=== PATIENT | male | born 1970 | race Caucasian/White ===

== ENCOUNTER 2023-02-23 23:48 | Inpatient (IN) | payer OTHER, SELFPAY ==
--- OUTSIDE RECORDS SUMMARY | 2023-02-23 23:51 | XMS_ITS | Continuity of Care Document ---
Author Name Unknown Organization [facility] Address Unknown Care Team Providers Care Instrumentation Chemist Name Role Phone Arianna FUNG, Heidi Antoine Primary Care Physician [phone] Encounter [facility] Date(s): 12/17/20 - 01/16/21 [facility] Allergies, Adverse Reactions, Alerts No Known Medication Allergies Medications Tylenol 325 mg oral tablet 650 mg, By Mouth, Every 6 hours, PRN, Refills 0, Maintenance, Pain , Mild Pain , Moderate, 02/08/18 15:48:15 EST Start Date: 02/08/18 Status: Ordered Problem List Condition Effective Dates Status Health Status Inform ant Infected sebaceous cyst left upper back(Confirmed) Active Social History Social History Type Response Smoking Status Never smoker entered on: 06/21/16 Sex
--- OUTSIDE RECORDS SUMMARY | 2023-02-23 23:51 | XMS_ITS | Continuity of Care Document ---
Author Name Unknown Organization [facility] Address [address] [place] [address] [address] [place] [address]- Care Team Providers Care Air Carrier Inspector Name Role Phone Heidi Keller MD Primary Care Physician [place] [facility] [id number] Date(s): 02/03/20 - 02/10/[address] [place] [address]- Attending Physician: Rahat Walker MD Referring Physician: Heidi Keller MD Allergies, Adverse Reactions, Alerts No Known Medication Allergies Medications Tylenol 325 mg oral tablet 650 mg, By Mouth, Every 6 hours, PRN, Refills 0, Maintenance, Pain , Mild Pain , Moderate, 02/08/18 15:48:15 EST Start Date: 02/08/18 Status: Ordered Problem List Condition Effective Dates Status Health Status Inform ant Infected sebaceous cyst left upper back(Confirmed) Active Vital Signs Most recent to oldest [Reference Range]: 1 2 3 Height 183 cm (02/03/20 11:14 AM) Pulse Rate [55-90 bpm] 79 bpm (02/03/20 11:14 AM) 75 bpm (01/29/20 3:35 PM) 73 bpm (01/29/20 3:30 PM) Blood Pressure [90-138/55-84 mm Hg] 135/89mm Hg (02/03/20 11:14 AM) 136/109mm Hg (01/29/20 3:35 PM) 162/103mm Hg *H* (01/29/20 3:30 PM) Respiratory Rate [16-30 br/min] 20 br/min (02/03/20 11:14 AM) Temperature [96.8-100.4 DegF] 98.4 DegF (02/03/20 11:14 AM) Blood pressure sites Arm, left (02/03/20 11:14 AM) Arm, right (01/29/20 3:35 PM) Arm, left (01/29/20 3:30 PM) Temperature Route Temporal (02/03/20 11:14 AM) Social History Social History Type Response Smoking Status Never smoker entered on: 06/21/16 Sex
--- OUTSIDE RECORDS SUMMARY | 2023-02-23 23:51 | XMS_ITS | Continuity of Care Document ---
Author Name Unknown Organization [facility] Address [address] [place] [address] [address] [place] [address]- Care Team Providers Care Conversion Worker Name Role Phone Heidi Keller MD Primary Care Physician Encounter [facility] [place] Date(s): 02/12/20 - 02/19/[address] [place] [address]- Attending Physician: Not on Staff, Attending MD Referring Physician: Heidi Keller MD Allergies, [...] Most recent to oldest [Reference Range]: 1 Height 183 cm (02/12/20 11:55 AM) Pulse Rate [55-90 bpm] 80 bpm (02/12/20 11:55 AM) Blood Pressure [90-138/55-84 mm Hg] 153/ 87mm Hg *H* (02/12/20 11:55 AM) Respiratory Rate [16-30 br/min] 20 br/mi n (02/12/20 11:55 AM) Temperature [96.8-100.4 DegF] 96.3 DegF *L* (02/12/20 11:55 AM) Blood pressure sites Arm, left (02/12/20 11:55 AM) Temperature Route Temporal (02/12/20 11:55 AM) Social History Social History Type Response Smoking Status Never smoker entered on: 06/21/16 Sex
--- OUTSIDE RECORDS SUMMARY | 2023-02-23 23:51 | XMS_ITS | Continuity of Care Document ---
Author Name Unknown Organization [facility] Address Unknown Care Team Providers Care Natural Sciences Professor Name Role Phone Heidi Keller MD Primary Care Physician [phone] Encounter [facility] [id number] Date(s): 12/23/20 - 03/03/21 [facility] Attending Physician: Jannet Sood MD Referring Physician: Heidi Keller MD Allergies, [...]
--- OUTSIDE RECORDS SUMMARY | 2023-02-23 23:51 | XMS_ITS | Continuity of Care Document ---
Author Name Unknown Organization [facility] Address [address] [place] [address] [address] [place] [address]- Care Team Providers Care Game Design Instructor Name Role Phone Arianna FUNG, Heidi Antoine Primary Care Physician [phone] [place] [facility] [place] Date(s): 02/12/20 - 03/13/[address] [place] [address]- Attending Physician: Channing Ty Admitting Physician: Channing Ty Referring Physician: Channing Ty Allergies, Adverse Reactions, Alerts No Known Medication [...]
--- OUTSIDE RECORDS SUMMARY | 2023-02-23 23:51 | XMS_ITS | Continuity of Care Document ---
Author Name Unknown Organization [facility] Address [address] [place] [address] [address] [place] [address]- Care Team Providers Care Barrel Painter Name Role Phone Arianna FUNG, Heidi Antoine Primary Care Physician Encounter [facility] [place] Date(s): 01/29/20 - 02/28/[address] [place] [address]- Allergies, Adverse Reactions, Alerts No Known Medication [...]
--- OUTSIDE RECORDS SUMMARY | 2023-02-23 23:51 | XMS_ITS | Continuity of Care Document ---
Author Name Unknown Organization [facility] Address Unknown Care Team Providers Care Lockstitch Collar Setter Name Role Phone Arianna FUNG, Heidi Antoine Primary Care Physician [place] [facility] [place]21 [place] 03/03/21 [facility] Attending Physician: Channing Ty Admitting Physician: Channing Ty Referring Physician: trChanning Allergies, Adverse Reactions, Alerts No Known Medication [...]
--- OUTSIDE RECORDS SUMMARY | 2023-02-23 23:51 | XMS_ITS | Continuity of Care Document ---
Author Name Unknown Organization [facility] Address [address] [place] [address]- Care Team Providers Care Level Vial Inspector Name Role Phone Arianna FUNG, Heidi Antoine Primary Care Physician Encounter [facility] [place] Date(s): 07/15/20 - 07/15/[address] [address]- Discharge Disposition: A-D/C Walkout Attending Physician: Not on Staff, Attending MD Admitting Physician: Not on Staff, Admitting MD Referring Physician: Not on Staff, Referring MD Allergies, Adverse Reactions, Alerts No Known [...] recent to oldest [Reference Range]: 1 2 Oxygen Saturation [94-100 %] 100 % (07/15/20 2:55 PM) 100 % (07/15/20 2:48 PM) Pulse Rate [55-90 bpm] 79 bpm (07/15/20 2:55 PM) 106 bpm *H* (07/15/20 2:48 PM) Blood Pressure [90-138/55-84 mm Hg] 160/ 92mm Hg *H* (07/15/20 2:55 PM) Respiratory Rate [16-30 br/min] 18 br/mi n (07/15/20 2:55 PM) Temperature [96.8-100.4 DegF] 98.8 DegF (07/15/20 2:55 PM) Mode of Delivery (Oxygen) Room air (07/15/20 2:55 PM) Room air (07/15/20 2:48 PM) Blood pressure sites Arm, right (07/15/20 2:55 PM) Temperature Route Oral (07/15/20 2:55 PM) Social History Social History Type Response Smoking Status Never smoker entered on: 06/21/16 Sex
[2023-02-24 01:21] VITALS: BP 142/82; PULSE 63; RESP 16; TEMP 36.6; O2SAT 100
[2023-02-24 01:31] VITALS: BP 142/82; PULSE 63; RESP 16; TEMP 36.6; O2SAT 100
[2023-02-24 01:33] VITALS: BMI 29.3
--- NOTE | 2023-02-24 02:54 | PC.ADMIT ---
PT is a 52 year old male admitted to unit on CV from [facility].PT was brought to [facility] ED secondary to suicide ideation. Per report PT was at home where he was being evicted due to house being condemned when multiple [employer] workers came to take pictures of the home. PT states , I lived at home with my disabled who has mental health issues and our 5 children and now we have been evicted.' Per report PT was expressing SI to the city workers who called the police. When police arrived per report PT laid down on the ground, put his hands behind his head and told police to shoot him. PT currently denies SI/HI/AVH. PT declined flu vaccine, PT would like a spiritual visit, PT is a non smoker, tox screen negative. PT cooperative during admission, avoiding eye contact, pleasant, cooperative, and hopeless. Skin/contraband check completed. PT has no known prior IPLOC. PT COVID negative. Safety tool and treatment plan started, PT placed on 15 minute safety checks. PT resting in bed with eyes closed at this time.
[2023-02-24 08:00] VITALS: BP 138/92; PULSE 75; TEMP 36.4; O2SAT 100
[2023-02-24] MEDS: Acetaminophen 325 MG TABLET 650 MG PO ×2 (09:13→21:09)
[2023-02-24] MEDS: hydrOXYzine HCL 25 MG TABLET PO (09:19)
--- NOTE | 2023-02-24 12:03 | HO.PSYADMNOT ---
HPI Date of Service: 02/24/23 Chief Complaint: Unspecified Depressive Disorder Sources of Information: patient interviewed, chart reviewed and crisis/core team assessment reviewed HPI Subjective Notes: Wallace Warning and Conditional Voluntary Narrative: Patient is a 52-year-old male with history of anxiety who presents to the ED for making suicidal comments. Patient reports that he has indeed been anxious because his family has been facing eviction. In 2014 they were also evicted, kids went to [facility] and the family ended up in a fdc for 5 years; memory of this experience was triggered as [employer] workers started to accumulate at his house and his living situation was temporarily condemned. Reports says he made suicidal comments to the [employer] workers who called 911. Patient said he he did not really make suicidal comments but rather was just referring to how he is going to end up freezing to if he is homeless. When the police arrived he said he did lie down on the ground but his hands on his head said go ahead and shoot me but he reports he just said this out of frustration and that he did not really mean it and that he does not want to . Patient denies any history of suicidality or self-harm. He reports he has ongoing anxiety about psychosocial stressors since his has schizophrenia, his younger child has ASD/ mental retardation and his older daughter has debilitating OCD and because of his 's disability he shoulders all of the family's numerous chores and responsibilities. Patient is applying for disability. Otherwise he has no community support. Denies drug or alcohol abuse. Patient was started on Prozac in October but he only took it for 30 days; would like to retry that now. Past Psychiatric History: No history of psychiatric admissions No history of suicide attempts Medical Evaluation Reviewed: Hospitalist Eval Pending [facility] Medical History (Updated 02/24/23 @ 18:29 by Silas Jara MD) Anxiety Degenerative disc disease, lumbar Degenerative disc disease, cervical Nephrolithiasis Chronic lower back pain Family History: deferred Social History: ; has schizophrenia Together they have 5 children, several with disabilities History of homelessness and living in a family fdc for several years Currently live in a home that is temporarily condemned and needs to be cleaned; apparently they can move back and wants it is clean and then deal with pending eviction Substance History: denies Trauma History: from previous eviction Diagnostics Vital Signs (24Hr): Vital Signs - 24 hr 02/24/23 01:21 02/24/23 01:31 02/24/23 08:00 Temperature 98 F 98 F 97.5 F Pulse Rate 63 63 75 Respiratory Rate 16 16 Blood Pressure 142/82 H 142/82 H 138/92 H Pulse Oximetry 100 100 100 Oxygen Delivery Method Room Air Room Air Room Air BMI result Body Mass Index 29.3 Meds/Allergies Meds Home Medications Medication Instructions Recorded Confirmed Type fluoxetine 10 mg capsule 10 mg PO DAILY 02/24/23 02/24/23 History hydroxyzine HCl 25 mg tablet 25 mg PO BEDTIME PRN anxiety 02/24/23 02/24/23 History Allergies Allergies Allergy/AdvReac Type Severity Reaction Status Date / Time No Known Allergies Allergy Unverified 11/21/19 17:07 [No Known Allergies*] Mental Status Exam Mental Status Exam Narrative: Pt is alert and oriented; behavior is cooperative, calm; patient is not in distress; dressed in hospital attire with unkempt hair and perkins, glasses, marginal hygiene; mood is described as anxious and affect congruent; eye contact appropriate; Speech is normal rate, volume and prosody and not pressured; no psychomotor agitation/retardation present; thought process is organized and goal directed; Thought content is on homelessness, worried about his kids and ; otherwise pertinent to relevant topics and without any delusional content, paranoid ideations or grandiosity; denies any SI/HI. There is no evidence of perceptual disturbance. Patients insight and judgment appear intact. Assessment & Plan Assessment & Plan (1) Adjustment disorder with mixed disturbance of emotions and conduct in remission: Status: Acute Code(s): F43.25 - Adjustment disorder with mixed disturbance of emotions and conduct (2) Anxiety: Status: Acute Code(s): F41.9 - Anxiety disorder, unspecified Plan HPI: Patient is a 52-year-old male with history of anxiety who presents to the ED for making suicidal comments. Patient reports that he has indeed been anxious because his family has been facing eviction. In 2014 they were also evicted, kids went to [facility] and the family ended up in a fdc for 5 years; memory of this experience was triggered as [employer] workers started to accumulate at his house and his living situation was temporarily condemned. Reports says he made suicidal comments to the [employer] workers who called 911. Patient said he he did not really make suicidal comments but rather was just referring to how he is going to end up freezing to if he is homeless. When the police arrived he said he did lie down on the ground but his hands on his head said go ahead and shoot me but he reports he just said this out of frustration and that he did not really mean it and that he does not want to . Patient denies any history of suicidality or self-harm. He reports he has ongoing anxiety about psychosocial stressors since his has schizophrenia, his younger child has ASD/ mental retardation and his older daughter has debilitating OCD and because of his 's disability he shoulders all of the family's numerous chores and responsibilities. Patient is applying for disability. Otherwise he has no community support. Denies drug or alcohol abuse. Patient was started on Prozac in October but he only took it for 30 days; would like to retry that now. Impression: Patient has a history of anxiety and certainly has numerous, severe psychosocial stressors. It seems that his reaction to pending eviction is the equivalent of an adjustment disorder. He made some suicidal references which he says were taken out of context and that he never actually meant it and has no plans or intention for self-harm. Patient hoping to get back to his family soon -per social studies teacher, the house is being cleaned and then family can move back in and deal with pending eviction that will likely take weeks to months -per social studies teacher patient's youngest to 15-year-old children are currently with DCF due to poor housing. Patient does not know this Plan: CV Q 15 minute checks Restart Prozac 20 mg; patient only tolerates chewing up tablets or liquid Clonidine p.r.n. for anxiety Reviewed labs from sending facility: CBC, lytes, BUN/creatinine WNL Patient educated on: diagnosis and medication risk/benefits Informed Consent: understands Reason for continued inpatient stay Substantial Risk for: med/psych decompensation Statement Statement: I have reviewed the history and physical and performed a pertinent examination on my patient. No changes have occurred unless specified. If the History and Physical was not performed prior to admission, the Hospitalist's service will be consulted for completing the admission physical. Time Spent With Patient Time: Total time managing care of this patient today ____ minutes.
--- NOTE | 2023-02-24 12:49 | P.CONHOSP_ITS ---
History of Present Illness Data of Consult Service Date: 02/24/23 Primary Care Provider: Unknown Physician HPI Reason for consult: Admission H&P Pt is a 52-year-old male with a PMH significant for?chronic lower back pain, degenerative disc disease in neck and back, chronic headaches, hx of nephrolithiasis, anxiety, and depression who is admitted to [facility] psychiat[facility] unit for increasing depression, hopelessness, and vague SI. Patient apparently was confronted at his home which was being condemned by the City. When police showed he lay on the ground, but says behind his head, and told police to shoot him continued to endorse SI in the hospital. Medical consult for admission H&P. Patient reports a long history of chronic back pain and degenerative disc disease in his neck and lower back. However, patient states pain currently is well controlled. He has no acute medical complaints at this time. Denies chest pain/pressure, palpitations. No shortness of breath. Denies fever, chills, nausea, vomiting, abdominal pain. Currently not experiencing a headache, the states he has chronic headaches. Reports drinking socially, denies cigarette or illicit substance use. Review of Systems Review of Systems: Chronic lower back pain Chronic headaches Patient otherwise has no acute medical complaints at this time [facility] Medical History (Updated 02/24/23 @ 17:42 by YUNIOR Berrios) Degenerative disc disease, lumbar Degenerative disc disease, cervical Nephrolithiasis Chronic lower back pain Social History Household Members: Family Housing: Homeless Do you presently have visiting nurse or other home services: No Patient Tobacco Use Status: Never used Tobacco e-Cigarette/Vaping Use: Never Used Use of substances other than those prescribed or required for medical reasons: No Currently Displaying Signs/Symptoms of Drug Intoxication Withdrawal: No Have you been hit, kicked, punched, or otherwise hurt by someone within the past year? If so, by whom?: No Do you feel safe in your current relationship?: Yes Is there a partner from a previous relationship who is making you feel unsafe now?: No Are you made to feel afraid or neglected: Yes Spiritual Healthcare Practices: NA [facility] Practices: NA Cultural Healthcare Practices: NA Advance Directives: No Advance Directives Information Provided: Yes Do you have thoughts of harming others: None Do you have a plan to hurt others: No Plan Recently lost weight without trying: Unsure How much weight loss: Unsure Nutrition Risks: No Nutritional Risk Poor oral hygiene: No Meds Allergies Allergy/AdvReac Type Severity Reaction Status Date / Time No Known Allergies Allergy Unverified 11/21/19 17:07 [No Known Allergies*] Active Medications: Current Medications Acetaminophen (Acetaminophen 325 Mg Tablet) 650 mg PO Q6H PRN PRN Reason: Headache/Pain Mild Scale (1-3) Last Admin: 02/24/23 09:13 Dose: 650 mg Al Hydroxide/Mg Hydroxide (Magnesium Hydrox/Alum Hydrox 30 Ml Oral.Susp) 30 ml PO Q6H PRN PRN Reason: Heartburn/Nausea Hydroxyzine HCl (Hydroxyzine Hcl 25 Mg Tablet) 25 mg PO Q6H PRN PRN Reason: Anxiety Last Admin: 02/24/23 09:19 Dose: 25 mg Magnesium Hydroxide (Milk Of Magnesia 30 Ml Oral.Susp) 30 ml PO DAILY PRN PRN Reason: Constipation Nicotine (Nicotine 21 Mg Patch.Td24) 21 mg TRANSDERMA DAILY PRN PRN Reason: smoking cessation Nicotine Polacrilex (Nicotine Polacrilex 2 Mg Gum) 4 mg BUCCAL Q2H PRN PRN Reason: Nicotine Cravings Olanzapine (Olanzapine 5 Mg Tablet) 5 mg PO TID PRN PRN Reason: agitation Trazodone HCl (Trazodone Hcl 50 Mg Tablet) 50 mg PO BEDTIME MRX1 PRN PRN Reason: Insomnia Home Medications Medication Instructions Recorded Confirmed Last Taken Type fluoxetine 10 mg capsule 10 mg PO DAILY 02/24/23 02/24/23 Unknown History hydroxyzine HCl 25 mg tablet 25 mg PO BEDTIME PRN anxiety 02/24/23 02/24/23 Unknown History Physical Exam Vital Signs and Narrative: Vital Signs: Last Vital Signs Temp 97.5 F 02/24/23 08:00 Pulse 75 02/24/23 08:00 Resp 16 02/24/23 01:31 BP 138/92 H 02/24/23 08:00 Pulse Ox 100 02/24/23 08:00 O2 Del Method Room Air 02/24/23 08:00 BMI result Body Mass Index 29.3 General: AOx3, no acute distress Resp: CTA bilaterally CVS: S1, S2, RRR GI: +BS, NT, no distention Skin: Warm, dry Neuro: Cranial nerves II-XII grossly intact bilaterally. Motor grossly intact bilaterally Extremities: No edema Assessment and Plan (1) Medical clearance for psychiatric admission: Status: Acute Plan Pt is a 52-year-old male with a PMH significant for?chronic lower back pain, degenerative disc disease in neck and back, chronic headaches, hx of nephrolithiasis, anxiety, and depression who is admitted to [facility] psychiat[facility] unit for increasing depression, hopelessness, and vague SI. Patient apparently was confronted at his home which was being condemned by the City. When police showed he lay on the ground, but says behind his head, and told police to shoot him continued to endorse SI in the hospital. Medical consult for admission H&P. Mood disorder Plan as per psychiatry Chronic back pain Acetaminophen for pain management Chronic headaches Acetaminophen for pain management Patient denies any other chronic medical conditions or acute medical complaints. Thank you for allowing us to participate in the care of this patient. Signing off at this time. Please re-consult if any acute complaints or issues arise.
[2023-02-24] MEDS: FLUoxetine HCl Oral Solution 20 MG/5 ML SOLUTION 10 MG PO (17:02)
[2023-02-24 18:00] VITALS: BP 132/83; PULSE 78; TEMP 36.3; O2SAT 99
[2023-02-25] MEDS: FLUoxetine HCl Oral Solution 20 MG/5 ML SOLUTION PO (08:10)
[2023-02-25 08:16] VITALS: BP 138/88; PULSE 77; RESP 18; TEMP 36.8; O2SAT 98
--- NOTE | 2023-02-25 10:10 | P.PNPSI_ITS ---
Subjective Subjective Date of Service: 02/25/23 Reason For Visit: Unspecified Depressive Disorder Subjective Notes: Conditional Voluntary Interim History: Patient verbal cooperative dealing with multiple significant stressors Medication Compliance: Yes Mental Status Exam Mental Status Exam Narrative: Patient is somewhat disheveled anxious ruminating quite verbal mood anxious constricted states future oriented denies active self-harm at this time trying to regroup after significant unfortunate events no psychosis impulse control adequate Diagnostics Vital Signs (24Hr): Vital Signs - 24 hr 02/24/23 18:00 02/25/23 08:16 Temperature 97.4 F 98.2 F Pulse Rate 78 77 Respiratory Rate 18 Blood Pressure 132/83 138/88 Pulse Oximetry 99 98 Oxygen Delivery Method Room Air Room Air BMI result Body Mass Index 29.3 Medications Medications Current Medications Acetaminophen (Acetaminophen 325 Mg Tablet) 650 mg PO Q6H PRN PRN Reason: Headache/Pain Mild Scale (1-3) Last Admin: 02/24/23 21:09 Dose: 650 mg Al Hydroxide/Mg Hydroxide (Magnesium Hydrox/Alum Hydrox 30 Ml Oral.Susp) 30 ml PO Q6H PRN PRN Reason: Heartburn/Nausea Clonidine HCl (Clonidine Hcl 0.1 Mg Tablet) 0.1 mg PO Q4H PRN; Protocol PRN Reason: anxiety Fluoxetine HCl (Fluoxetine Hcl Oral Solution 20 Mg/5 Ml Solution) 20 mg PO DAILY [facility] Last Admin: 02/25/23 08:10 Dose: 20 mg Hydroxyzine HCl (Hydroxyzine Hcl 25 Mg Tablet) 25 mg PO Q6H PRN PRN Reason: Anxiety Last Admin: 02/24/23 09:19 Dose: 25 mg Magnesium Hydroxide (Milk Of Magnesia 30 Ml Oral.Susp) 30 ml PO DAILY PRN PRN Reason: Constipation Nicotine (Nicotine 21 Mg Patch.Td24) 21 mg TRANSDERMA DAILY PRN PRN Reason: smoking cessation Nicotine Polacrilex (Nicotine Polacrilex 2 Mg Gum) 4 mg BUCCAL Q2H PRN PRN Reason: Nicotine Cravings Olanzapine (Olanzapine 5 Mg Tablet) 5 mg PO TID PRN PRN Reason: agitation Trazodone HCl (Trazodone Hcl 50 Mg Tablet) 50 mg PO BEDTIME MRX1 PRN PRN Reason: Insomnia Allergies Allergies Allergy/AdvReac Type Severity Reaction Status Date / Time No Known Allergies Allergy Unverified 11/21/19 17:07 [No Known Allergies*] Assessment & Plan Assessment & Plan (1) Adjustment disorder with mixed disturbance of emotions and conduct in remission: Status: Acute Code(s): F43.25 - Adjustment disorder with mixed disturbance of emotions and conduct (2) Anxiety: Status: Acute Code(s): F41.9 - Anxiety disorder, unspecified Plan HPI: Patient is a 52-year-old male with history of anxiety who presents to the ED for making suicidal comments. Patient reports that he has indeed been anxious because his family has been facing eviction. In 2014 they were also evicted, kids went to [facility] and the family ended up in a [facility] for 5 years; memory of thi s experience was triggered as [employer] workers started to accumulate at his house and his living situation was temporarily condemned. Reports says he made suicidal comments to the [employer] workers who called 911. Patient said he he did not really make suicidal comments but rather was just referring to how he is going to end up freezing to if he is homeless. When the police arrived he said he did lie down on the ground but his hands on his head said go ahead and shoot me but he reports he just said this out of frustration and that he did not really mean it and that he does not want to . Patient denies any history of suicidality or self-harm. He reports he has ongoing anxiety about psychosocial stressors since his has schizophrenia, his younger child has ASD/ mental retardation and his older daughter has debilitating OCD and because of his 's disability he shoulders all of the family's numerous chores and responsibilities. Patient is applying for disability. Otherwise he has no community support. Denies drug or alcohol abuse. Patient was started on Prozac in October but he only took it for 30 days; would like to retry that now. Impression: Patient has a history of anxiety and certainly has numerous, severe psychosocial stressors. It seems that his reaction to pending eviction is the equivalent of an adjustment disorder. He made some suicidal references which he says were taken out of context and that he never actually meant it and has no plans or intention for self-harm. Patient hoping to get back to his family soon -per social research assistant, the house is being cleaned and then family can move back in and deal with pending eviction that will likely take weeks to months -per social research assistant patient's youngest to 15-year-old children are currently with DCF due to poor housing. Patient does not know this Plan: CV Q 15 minute checks Restart Prozac 20 mg; patient only tolerates chewing up tablets or liquid Clonidine p.r.n. for anxiety Reviewed labs from sending facility: CBC, lytes, BUN/creatinine WNL 02/25/2023 Continue plan of care continue fluoxetine Reason for continued inpatient stay Substantial Risk for: harm to self Time Spent With Patient Time: Total time managing care of this patient today ____ minutes.
[2023-02-25] MEDS: Acetaminophen 325 MG TABLET 650 MG PO (16:28)
[2023-02-25 18:00] VITALS: BP 142/86; PULSE 85; RESP 16; TEMP 36.4; O2SAT 99
--- NOTE | 2023-02-26 01:15 | PC.NURSE ---
Pt signed 3-day today, 02/25/23; it is up on 03/02/23.
[2023-02-26 06:00] VITALS: BP 136/88; PULSE 80; TEMP 36.6; O2SAT 100
[2023-02-26] MEDS: FLUoxetine HCl Oral Solution 20 MG/5 ML SOLUTION PO (09:01)
[2023-02-26 16:29] VITALS: BP 132/75; PULSE 88; RESP 16; TEMP 36.6; O2SAT 99
[2023-02-26] MEDS: Acetaminophen 325 MG TABLET 650 MG PO (21:21)
--- NOTE | 2023-02-26 23:53 | P.PNPSI_ITS ---
Subjective Subjective Date of Service: 02/26/23 Reason For Visit: Unspecified Depressive Disorder Subjective Notes: Conditional Voluntary Interim History: Patient anxious verbal regarding multiple difficulties he was dealing with at home how overwhelming they can be and he had been counseling but felt like he needed much more time is started on Prozac. Denies active SI but did become overwhelmed when he thought he might become homeless Mental Status Exam Mental Status Exam Narrative: Patient is somewhat disheveled anxious ruminating quite verbal mood anxious constricted states future oriented denies active self-harm at this time trying to regroup after significant unfortunate events no psychosis impulse control adequate Diagnostics Vital Signs (24Hr): Vital Signs - 24 hr 02/26/23 06:00 02/26/23 16:29 Temperature 97.9 F 97.8 F Pulse Rate 80 88 Respiratory Rate 16 Blood Pressure 136/88 132/75 Pulse Oximetry 100 99 Oxygen Delivery Method Room Air Room Air BMI result Body Mass Index 29.3 Medications Medications Current Medications Acetaminophen (Acetaminophen 325 Mg Tablet) 650 mg PO Q6H PRN PRN Reason: Headache/Pain Mild Scale (1-3) Last Admin: 02/26/23 21:21 Dose: 650 mg Al Hydroxide/Mg Hydroxide (Magnesium Hydrox/Alum Hydrox 30 Ml Oral.Susp) 30 ml PO Q6H PRN PRN Reason: Heartburn/Nausea Clonidine HCl (Clonidine Hcl 0.1 Mg Tablet) 0.1 mg PO Q4H PRN; Protocol PRN Reason: anxiety Fluoxetine HCl (Fluoxetine Hcl Oral Solution 20 Mg/5 Ml Solution) 20 mg PO DAILY CHENTE Last Admin: 02/26/23 09:01 Dose: 20 mg Hydroxyzine HCl (Hydroxyzine Hcl 25 Mg Tablet) 25 mg PO Q6H PRN PRN Reason: Anxiety Last Admin: 02/24/23 09:19 Dose: 25 mg Magnesium Hydroxide (Milk Of Magnesia 30 Ml Oral.Susp) 30 ml PO DAILY PRN PRN Reason: Constipation Nicotine (Nicotine 21 Mg Patch.Td24) 21 mg TRANSDERMA DAILY PRN PRN Reason: smoking cessation Nicotine Polacrilex (Nicotine Polacrilex 2 Mg Gum) 4 mg BUCCAL Q2H PRN PRN Reason: Nicotine Cravings Olanzapine (Olanzapine 5 Mg Tablet) 5 mg PO TID PRN PRN Reason: agitation Trazodone HCl (Trazodone Hcl 50 Mg Tablet) 50 mg PO BEDTIME MRX1 PRN PRN Reason: Insomnia Allergies Allergies Allergy/AdvReac Type Severity Reaction Status Date / Time No Known Allergies Allergy Unverified 11/21/19 17:07 [No Known Allergies*] Assessment & Plan Assessment & Plan (1) Adjustment disorder with mixed disturbance of emotions and conduct in remission: Status: Acute Code(s): F43.25 - Adjustment disorder with mixed disturbance of emotions and conduct (2) Anxiety: Status: Acute Code(s): F41.9 - Anxiety disorder, unspecified Plan HPI: Patient is a 52-year-old male with history of anxiety who presents to the ED for making suicidal comments. Patient reports that he has indeed been anxious because his family has been facing eviction. In 2014 they were also evicted, kids went to [facility] and the family ended up in a halfway for 5 years; memory of this experience was triggered as [employer] workers started to accumulate at his house and his living situation was temporarily condemned. Reports says he made suicidal comments to the [employer] workers who called 911. Patient said he he did not really make suicidal comments but rather was just referring to how he is going to end up freezing to if he is homeless. When the police arrived he said he did lie down on the ground but his hands on his head said go ahead and shoot me but he reports he just said this out of frustration and that he did not really mean it and that he does not want to . Patient denies any history of suicidality or self-harm. He reports he has ongoing anxiety about psychosocial stressors since his has schizophrenia, his younger child has ASD/ mental retardation and his older daughter has debilitating OCD and because of his 's disability he shoulders all of the family's numerous chores and responsibilities. Patient is applying for disability. Otherwise he has no community support. Denies drug or alcohol abuse. Patient was started on Prozac in October but he only took it for 30 days; would like to retry that now. Impression: Patient has a history of anxiety and certainly has numerous, severe psychosocial stressors. It seems that his reaction to pending eviction is the equivalent of an adjustment disorder. He made some suicidal references which he says were taken out of context and that he never actually meant it and has no plans or intention for self-harm. Patient hoping to get back to his family soon -per social service liaison, the house is being cleaned and then family can move back in and deal with pending eviction that will likely take weeks to months -per social service liaison patient's youngest to 15-year-old children are currently with DCF due to poor housing. Patient does not know this Plan: CV Q 15 minute checks Restart Prozac 20 mg; patient only tolerates chewing up tablets or liquid Clonidine p.r.n. for anxiety Reviewed labs from sending facility: CBC, lytes, BUN/creatinine WNL 02/25/2023 Continue plan of care continue fluoxetine 02/26/2023 Continue plan of care patient social and engaged very verbal about multiple stressors dealing with potential eviction he is hopeful stable be coming through with support Reason for continued inpatient stay Substantial Risk for: harm to self and rapid decompensation Time Spent With Patient Time: Total time managing care of this patient today ____ minutes.
[2023-02-27 08:40] VITALS: BP 166/88; PULSE 82; RESP 16; TEMP 36.5; O2SAT 100
[2023-02-27] MEDS: FLUoxetine HCl Oral Solution 20 MG/5 ML SOLUTION PO (08:58)
[2023-02-27 18:00] VITALS: BP 146/82; PULSE 84; RESP 17; TEMP 36.7; O2SAT 97
[2023-02-28 08:30] VITALS: BP 148/95; PULSE 90; RESP 16; TEMP 36.3; O2SAT 100
[2023-02-28] MEDS: FLUoxetine HCl Oral Solution 20 MG/5 ML SOLUTION 10 MG PO (09:09)
--- NOTE | 2023-02-28 16:09 | P.PNPSI_ITS ---
Subjective Subjective Date of Service: 02/28/23 Reason For Visit: Unspecified Depressive Disorder Subjective Notes: Conditional Voluntary and 3 Day Healthcare Proxy: No Guardianship: No Medical Problems Affecting Mental Status: No Interim History: Three day notice to 03/02/23. Pt reports no questions or concerns regarding treatment. Denies med SE or current concerns regarding efficacy. Visable in milieu at times. Medication Compliance: Yes Side effects from medications: No Attending Groups: Intermittent Review of Systems Acute medical concerns: No Medical Review of Systems: unchanged Review of Systems Review of Systems Chronic lower back pain Chronic headaches Patient otherwise has no acute medical complaints at this time Mental Status Exam Mental Status Exam Narrative: Patient is somewhat disheveled anxious ruminating quite verbal mood anxious constricted states future oriented denies active self-harm at this time trying to regroup after significant unfortunate events no psychosis impulse control adequate Diagnostics Vital Signs (24Hr): Vital Signs - 24 hr 02/27/23 18:00 02/28/23 08:30 Temperature 98.0 F 97.3 F Pulse Rate 84 90 Respiratory Rate 17 16 Blood Pressure 146/82 H 148/95 H Pulse Oximetry 97 100 Oxygen Delivery Method Room Air Room Air BMI result Body Mass Index 29.3 Medications Medications Current Medications Acetaminophen (Acetaminophen 325 Mg Tablet) 650 mg PO Q6H PRN PRN Reason: Headache/Pain Mild Scale (1-3) Last Admin: 02/26/23 21:21 Dose: 650 mg Al Hydroxide/Mg Hydroxide (Magnesium Hydrox/Alum Hydrox 30 Ml Oral.Susp) 30 ml PO Q6H PRN PRN Reason: Heartburn/Nausea Clonidine HCl (Clonidine Hcl 0.1 Mg Tablet) 0.1 mg PO Q4H PRN; Protocol PRN Reason: anxiety Fluoxetine HCl (Fluoxetine Hcl Oral Solution 20 Mg/5 Ml Solution) 10 mg PO DAILY [facility] Last Admin: 02/28/23 09:09 Dose: 10 mg Hydroxyzine HCl (Hydroxyzine Hcl 25 Mg Tablet) 25 mg PO Q6H PRN PRN Reason: Anxiety Last Admin: 02/24/23 09:19 Dose: 25 mg Magnesium Hydroxide (Milk Of Magnesia 30 Ml Oral.Susp) 30 ml PO DAILY PRN PRN Reason: Constipation Nicotine (Nicotine 21 Mg Patch.Td24) 21 mg TRANSDERMA DAILY PRN PRN Reason: smoking cessation Nicotine Polacrilex (Nicotine Polacrilex 2 Mg Gum) 4 mg BUCCAL Q2H PRN PRN Reason: Nicotine Cravings Olanzapine (Olanzapine 5 Mg Tablet) 5 mg PO TID PRN PRN Reason: agitation Trazodone HCl (Trazodone Hcl 50 Mg Tablet) 50 mg PO BEDTIME MRX1 PRN PRN Reason: Insomnia Allergies Allergies Allergy/AdvReac Type Severity Reaction Status Date / Time No Known Allergies Allergy Unverified 11/21/19 17:07 [No Known Allergies*] Assessment & Plan Assessment & Plan (1) Adjustment disorder with mixed disturbance of emotions and conduct in remission: Status: Acute Code(s): F43.25 - Adjustment disorder with mixed disturbance of emotions and conduct (2) Anxiety: Status: Acute Code(s): F41.9 - Anxiety disorder, unspecified Plan HPI: Patient is a 52-year-old male with history of anxiety who presents to the ED for making suicidal comments. Patient reports that he has indeed been anxious because his family has been facing eviction. In 2014 they were also evicted, kids went to [facility] and the family ended up in a [facility] for 5 years; memory of this experience was triggered as [employer] workers started to accumulate at his house and his living situation was temporarily condemned. Reports says he made suicidal comments to the [employer] workers who called 911. Patient said he he did not really make suicidal comments but rather was just referring to how he is going to end up freezing to if he is homeless. When the police arrived he said he did lie down on the ground but his hands on his head said go ahead and shoot me but he reports he just said this out of frustration and that he did not really mean it and that he does not want to . Patient denies any history of suicidality or self-harm. He reports he has ongoing anxiety about psychosocial stressors since his has schizophrenia, his younger child has ASD/ mental retardation and his older daughter has debilitating OCD and because of his 's disability he shoulders all of the family's numerous chores and responsibilities. Patient is applying for disability. Otherwise he has no community support. Denies drug or alcohol abuse. Patient was started on Prozac in October but he only took it for 30 days; would like to retry that now. Impression: Patient has a history of anxiety and certainly has numerous, severe psychosocial stressors. It seems that his reaction to pending eviction is the equivalent of an adjustment disorder. He made some suicidal references which he says were taken out of context and that he never actually meant it and has no plans or intention for self-harm. Patient hoping to get back to his family soon -per social insurance analyst, the house is being cleaned and then family can move back in and deal with pending eviction that will likely take weeks to months -per social insurance analyst patient's youngest to 15-year-old children are currently with DCF due to poor housing. Patient does not know this Plan: CV Q 15 minute checks Restart Prozac 20 mg; patient only tolerates chewing up tablets or liquid Clonidine p.r.n. for anxiety Reviewed labs from sending facility: CBC, lytes, BUN/creatinine WNL 02/25/2023 Continue plan of care continue fluoxetine 02/26/2023 Continue plan of care patient social and engaged very verbal about multiple stressors dealing with potential eviction he is hopeful stable be coming through with support 02/28/23 Three day notice to 03/02. Discharge planned for 03/01. Informed Consent: understands Reason for continued inpatient stay Substantial Risk for: stable for discharge Time Spent With Patient Time: Total time managing care of this patient today ____ minutes.
[2023-02-28 18:00] VITALS: BP 128/85; PULSE 102; TEMP 36.4; O2SAT 98
[2023-02-28] MEDS: Loperamide HCl 2 MG CAPSULE 4 MG PO (21:39)
[2023-03-01] MEDS: FLUoxetine HCl Oral Solution 20 MG/5 ML SOLUTION 10 MG PO (08:40)
[2023-03-01 08:59] VITALS: BP 137/84; PULSE 77; RESP 16; TEMP 36.4; O2SAT 100
[2023-03-01] MEDS: Loperamide HCl 2 MG CAPSULE 4 MG PO (09:05)
--- NOTE | 2023-03-01 09:42 | PM.PSYDC ---
DS: Providers Provider Date of Service: 03/01/23 Date of admission: 02/23/23 23:48 Date of discharge: 03/01/23 Primary care physician: Unknown Physician Attending physician on admission: Silas Jara Consults: 02/24/23 01:42 Consult to Hospitalist Routine Comment: Consulting Provider: Hospitalist Reason For Exam: admission physical Attending physician on discharge: Silas Jara DS: Diagnosis Discharge Diagnosis (1) Adjustment disorder with mixed disturbance of emotions and conduct in remission: Status: Acute (2) Anxiety: Status: Acute DS: Medications Discharge Medications Home Medications: Home Medications Medication Instructions Recorded Confirmed fluoxetine 10 mg capsule 10 mg PO DAILY 02/24/23 02/24/23 hydroxyzine HCl 25 mg tablet 25 mg PO BEDTIME PRN anxiety 02/24/23 02/24/23 Mental Status Exam Mental Status Exam Narrative: Pt is alert and oriented; behavior is cooperative, calm; patient is not in distress; dressed in hospital attire with unkempt hair and perkins, glasses, adequate hygiene; mood is described as better and affect congruent; eye contact appropriate; Speech is normal rate, volume and prosody and not pressured; no psychomotor agitation/retardation present; thought process is organized and goal directed; Thought content is on family struggles; otherwise pertinent to relevant topics and without any delusional content, paranoid ideations or grandiosity; denies any SI/HI. There is no evidence of perceptual disturbance. Patients insight and judgment are intact. DS: Summary Hospital Course Hospital Course: HPI: Patient is a 52-year-old male with history of anxiety who presents to the ED for making suicidal comments. Patient reports that he has indeed been anxious because his family has been facing eviction. In 2014 they were also evicted, kids went to [facility] and the family ended up in a [facility] for 5 years; memory of this experience was triggered as [employer] workers started to accumulate at his house and his living situation was temporarily condemned. Reports says he made suicidal comments to the [employer] workers who called 911. Patient said he he did not really make suicidal comments but rather was just referring to how he is going to end up freezing to if he is homeless. When the police arrived he said he did lie down on the ground but his hands on his head said go ahead and shoot me but he reports he just said this out of frustration and that he did not really mean it and that he does not want to . Patient denies any history of suicidality or self-harm. He reports he has ongoing anxiety about psychosocial stressors since his has schizophrenia, his younger child has ASD/ mental retardation and his older daughter has debilitating OCD and because of his 's disability he shoulders all of the family's numerous chores and responsibilities. Patient is applying for disability. Otherwise he has no community support. Denies drug or alcohol abuse. Patient was started on Prozac in October but he only took it for 30 days; would like to retry that now. Impression: Patient has a history of anxiety and certainly has numerous, severe psychosocial stressors. It seems that his reaction to pending eviction is the equivalent of an adjustment disorder. He made some suicidal references which he says were taken out of context and that he never actually meant it and has no plans or intention for self-harm. Patient hoping to get back to his family soon -per school social worker, the house is being cleaned and then family can move back in and deal with pending eviction that will likely take weeks to months -per school social worker patient's youngest to 15-year-old children are currently with DCF due to poor housing. Patient does not know this Hospital course: anxious on admission, however, continued to deny an actual SI at all; restarted on Prozac which he reports helped lower his anxiety (pt did get some loose stool but wanted to continue with prozac). Although Pt remained concerned and anxious about his family and possible homelessness, he did feel anxiety was under better control. Sleeping and eating well; remained in good behavioral and impulse control and appropriate w/ peers and staff throughout his stay.. Given excessive worries, dx with KADEN. Pt remained improved, w/out any SI and wanting to dc home to his family. No hx of self harm and future oriented. Pt was not in imminent risk for harm to self or others and appropriate to continue tx in the community. His request for DC honored. Time spent discussing smoking cessation with patient: 3 to 10 minutes Status at Discharge Functional status at discharge: independent ambulation Overall status at discharge: patient is back to baseline Time Spent with Patient Time attestation: Total time managing care of this patient today ____ minutes. Time spent: Less than 30 minutes Discharge Plan Discharge Anticipated Discharge Date/Time: 03/01/23 11:30 Patient Disposition: Home, Self-Care Discharge Diagnosis: KADEN Referrals: Therapy: Geneva Hagen ([facility]) [Other] - 03/02/23 12:00 pm (Telehealth ) Partial Hospitalization Program: [facility] [Other] - 1 Week (If you choose to pursue the [facility] program, you can call the above number to refer yourself to their [place] program or ask your therapist to assist with the referral ) Vitor Flores MD [Physician] - 03/13/23 10:30 am (Appointment is in person at the office in [place] ) Discharge Medications: New fluoxetine 20 mg/5 mL (4 mg/mL) Solution 10 mg PO DAILY 30 Days Qty: 75 1RF Discontinued fluoxetine 10 mg capsule 10 mg PO DAILY hydroxyzine HCl 25 mg tablet 25 mg PO BEDTIME PRN (Reason: anxiety) Discharge Orders: Discharge Order (Routine); Ordered 03/01/23 Ordered By: Silas Jara Diet: Regular diet Activity on Discharge: As tolerated Stand Alone Forms: Patient Portal Discharge page, Community Support Care Plan Goals: Maintain mood and safe behaviors Take medications as prescribed Continue to pursue sobriety Practice coping skills Continue with outpatient providers and reach out to them as needed Health Concerns: Mood stability and behaviors Plan of Treatment: Follow up with your PCP, psychiatric provider and other outpatient providers regarding above concerns Take medications as prescribed Assessment: Risk assessment at time of discharge:? Patient was interviewed prior to discharge and found to be fully oriented and without any SI or HI. Patient has improved insight and judgment and wants to continue treatment. Patient is not in imminent risk of harm to self or others and has a safety plan that includes presenting to the closest ER or calling 911 if feeling unsafe.? Patient has been observed closely by nursing and unit staff throughout admission; patient has not engaged in any behaviors that suggest dangerousness to self or others and has demonstrated appropriate behaviors and impulse control
== END 2023-03-01 11:30 | disposition home or self-care (01) | DRG 755 ==
PROVIDERS: Admitting Provider Psychiatry & Neurology Psychiatry; Visit Provider Psychiatry & Neurology Psychiatry
DX: F43.25 Adjustment disorder with mixed disturbance of emotions and conduct (principal); R45.851 Suicidal ideations; M47.812 Spondylosis without myelopathy or radiculopathy, cervical region; M47.816 Spondylosis without myelopathy or radiculopathy, lumbar region; F41.1 Generalized anxiety disorder; M54.59 Other low back pain; G89.29 Other chronic pain; M54.2 Cervicalgia; Z79.899 Other long term (current) drug therapy

== ENCOUNTER → 2023-02-23 23:48 | Outpatient (BNV) | payer OTHER, SELFPAY | PROVIDERS: Admitting Provider Psychiatry & Neurology Psychiatry; Visit Provider Psychiatry & Neurology Psychiatry | DX: F43.25 Adjustment disorder with mixed disturbance of emotions and conduct (principal); F41.9 Anxiety disorder, unspecified | CPT/HCPCS: 99231 ==

== ENCOUNTER → 2023-02-23 23:48 | Outpatient (BNV) | payer OTHER, SELFPAY | PROVIDERS: Admitting Provider Psychiatry & Neurology Psychiatry; Visit Provider Student in an Organized Health Care Education/Training Program | DX: Z02.2 Encounter for examination for admission to residential institution (principal) | CPT/HCPCS: 99429 ==

== ENCOUNTER → 2023-02-23 23:48 | Outpatient (BNV) | payer OTHER, SELFPAY | PROVIDERS: Admitting Provider Psychiatry & Neurology Psychiatry; Visit Provider Psychiatry & Neurology Psychiatry | DX: F43.25 Adjustment disorder with mixed disturbance of emotions and conduct (principal); F41.9 Anxiety disorder, unspecified | CPT/HCPCS: 90792; 99231; 99232; 99238 ==